=== PATIENT | female | born 1975 | race Caucasian/White ===

== ENCOUNTER 2018-07-06 09:14 | Emergency (ER) | payer OTHER ==
[2018-07-06 09:51] LABS: Absolute Monocytes 0.4 K/uL (0.1-1.3); Absolute Neutrophil 6.2 K/uL (1.8-8.0); Basophils % 0.8 % (0-1.3); Eosinophils % 0.6 % (0-4.4); Hematocrit 46.9 % (36.0-45.0); Lymphocytes % 23.2 % (15.3-44.8); MCH 28.6 pg (27.0-35.0); MCV 86.4 fL (80-100); MPV 8.9 fL (7.6-11.3); Monocytes % 4.5 % (3.3-12.3); RBC Red Blood Cell Count 5.42 M/uL (3.86-4.86)
[2018-07-06] MEDS ORDERED: NA CHLORIDE 0.9% 1,000 ML ONE (10:16)
[2018-07-06 10:23] LABS: Potassium 4.2 mmol/L (3.5-5.1)
--- NOTE | 2018-07-06 11:12 | RAD REPORT ---
EXAM DESCRIPTION: US - Transvaginal OB - 07/06/2018 11:03 am CLINICAL HISTORY: , bleeding COMPARISON: None. FINDINGS: A single intrauterine gestation is identified. Heart rate is 179 BPM. In the lower uterine segment near a closed internal os there is a 2 centimeter heterogeneous focus that could be small am ount of hemorrhagic material. This is not likely clinically significant at this small size but can be monitored. [place]-rump length measurement corresponds to a 10 week 4 day age. Calculated MICHAEL is 01/28/2019. Neither ovary was identifiable. No adnexal mass seen. No blood or free fluid in the cul-de-sac. IMPRESSION: Single 10 week 4 day IUP with a calculated MICHAEL of 01/28/2019. Heart rate was 179 BPM. There is a 2 centimeter heterogeneous focus in the lower uterine segment near a closed internal os. T his is suspected to be hemorrhagic material. Long-term significance is doubtful but this can be monit ored if symptoms worsen.
[2018-07-06 12:08] LABS: Urine Bilirubin NEGATIVE (NEG); Urine Glucose NEGATIVE (NEG); Urine Protein 2+ (NEG); Urine Specific Gravity >=1.030 (1.005-1.030); Urine Urobilinogen 0.2 mg/dL (0.2-1.0); Urine pH 5.5 (5.0-7.0)
[2018-07-06 12:17] LABS: Urine Color RED
[2018-07-06 12:18] LABS: Urine Appearance TURBID; Urine Blood 4+ (NEG); Urine Microscopic Reflex ORDER UMIC
[2018-07-06 12:20] LABS: Urine Bacteria <20 /HPF (<20); Urine Culture Reflex Order REFLEXED; Urine RBC >50 /HPF (NONE SEEN)
--- NOTE | 2018-07-06 12:29 | ER ---
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 Transition of care: patient was not received from another setting of care. Onset of symptoms was July 06, 2018. Risk Assessment: Do you want to hurt yourself or someone else? Patient reports no desire to harm self or others. Initial Sepsis Screen: Does the patient meet any 2 criteria? No. Patient's initial sepsis screen is negative. Does the patient have a suspected source of infection? No. Patient's initial sepsis screen is negative. Care prior to arrival: None. 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 - Ebola Screening: : Patient negative for fever greater than or equal to 101.5 degrees Fahrenheit, and additional compatible Ebola Virus Disease symptoms Patient denies exposure to infectious person Patient denies travel to an Ebola-affected area in the 21 days before illness onset No symptoms or risks identified at this time. - Family history:: not pertinent. - Social history:: Smoking status: Patient/guardian denies using tobacco. - Hospitalizations: : No recent hospitalization is reported. Screenin:28 Abuse screen: Denies threats or abuse. Denies injuries from another. Nutritional sv screening: No deficits noted. Tuberculosis screening: No symptoms or risk factors identified. Fall Risk None identified. Assessment: 09:25 General: Appears uncomfortable, Behavior is cooperative, crying. Pain: Denies pain. sv Neuro: Level of Consciousness is awake, alert, obeys commands, Oriented to person, place, time, situation, Moves all extremities. Full function Gait is steady. Respiratory: Respiratory effort is even, unlabored, Respiratory pattern is regular, symmetrical. : Reports vaginal bleeding that is bright red, moderate flow, since today. Derm: Skin is pink, warm \T\ dry. Vital Signs: 09:22 BP 166 / 112; Pulse 128; Resp 20 S; Temp 98.1(TE); Pulse Ox 97% ; aa5 10:14 BP 120 / 107; Pulse 95; Resp 18; Pulse Ox 100% ; sv 12:14 BP 109 / 64; Pulse 89; Resp 17; Pulse Ox 96% on R/A; dh3 12:53 BP 107 / 64; Pulse 90; Resp 18; Pulse Ox 95% on R/A; tw2 09:22 Pt crying uncontrollably during VS aa5 ED Course: 09:15 Patient arrived in ED. mr 09:15 out of town, doctor is Private Physician. mr 09:17 Avril Mason RN is Primary Nurse. sv 09:18 Brodie Gan MD is Attending Physician. rn 09:25 Initial lab(s) drawn, by me, sent to lab. Inserted saline lock: 20 gauge in right sv antecubital area, using aseptic technique. Blood collected. Flushed right antecubital with 5 ml normal saline. 09:25 Patient has correct armband on for positive identification. Placed in gown. Bed in low sv position. Call light in reach. Adult w/ patient. Pulse ox on. NIBP on. Door closed. Pillow given. Head of bed elevated. 09:27 Triage completed. iw 09:28 Arm band placed on right wrist. sv 09:41 Radiology exam delayed due to test not completed at this time. aa4 11:03 US Transvaginal Ob In Process Unspecified. EDMS 13:04 No provider procedures requiring assistance completed. IV discontinued, intact, sv bleeding controlled, No redness/swelling at site. Pressure dressing applied. Administered Medications: 10:14 Drug: NS 0.9% 1000 ml Route: IV; Rate: 1000 ml; Site: right antecubital; sv Outcome: 12:28 Discharge ordered by . rn 13:04 Patient left the ED. sv 13:04 Discharged to home via wheelchair, with family. sv 13:04 Condition: stable 13:04 Discharge instructions given to patient, Instructed on discharge instructions, follow up and referral plans. medication usage, Demonstrated understanding of instructions, follow-up care, medications, Prescriptions given X 1. Signatures: Dispatcher [employer] EDAvril Silva RN RN De La PazMary Irene RN ALLIE Nasra Rivera aa4 Brodie Gan MD MD rn Calderon, Audri, RN RN aa5 Ana Lilia Badillo RN RN 2 Lis Orellana 3 Corrections: (The following items were deleted from the chart) 12:22 11:14 BP 109 / 64; Pulse 89bpm; Resp 17bpm; Pulse Ox 96% RA; dh3 dh3 13:13 13:06 Patient left the ED. [facility]
--- NOTE | 2018-07-06 12:29 | EDPHYS ---
Physician Documentation [facility] Name: Graciela Grewal Age: 42 yrs Sex: Female : 1975 Arrival Date: 07/06/2018 Time: 09:15 Bed 7 Private MD: out of town, doctor ED Physician Brodie Gan HPI: 07/06 09:35 This 42 yrs old Female presents to ER via Ambulatory with complaints of rn Vaginal Bleeding, + Preg <12wks. 09:35 The patient presents to the emergency department with vaginal bleeding, that is rn moderate. The estimated gestational age is 10 weeks. course: care: private OB physician, Leakage of Fluid: none appreciated, Ultrasound: the patient had an ultrasound, which was normal. Previous pregnancies: in previous pregnancies patient has had. The patient has experienced similar episodes in the past. 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 Has never carried to term.. 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 - Ebola Screening: : Patient negative for fever greater than or equal to 101.5 degrees Fahrenheit, and additional compatible Ebola Virus Disease symptoms Patient denies exposure to infectious person Patient denies travel to an Ebola-affected area in the 21 days before illness onset No symptoms or risks identified at this time. - Family history:: not pertinent. - Social history:: Smoking status: Patient/guardian denies using tobacco. - Hospitalizations: : No recent hospitalization is reported. ROS: 09:35 Constitutional: Negative for fever, chills, and weight loss, Eyes: Negative for injury, rn pain, redness, and discharge, Neck: Negative for injury, pain, and swelling, Cardiovascular: Negative for chest pain, palpitations, and edema, Respiratory: Negative for shortness of breath, cough, wheezing, and pleuritic chest pain, Abdomen/GI: Negative for abdominal pain, nausea, vomiting, diarrhea, and constipation, : + vaginal bleeding MS/Extremity: Negative for injury and deformity, Skin: Negative for injury, rash, and discoloration, Neuro: Negative for headache, weakness, numbness, tingling, and seizure. Exam: 09:35 Constitutional: This is a well developed, well nourished patient who is awake, alert, rn crying Eyes: Pupils equal round and reactive to light, extra-ocular motions intact. Lids and lashes normal. Conjunctiva and sclera are non-icteric and not injected. Abdomen/GI: soft, non-tender, blood stain inner thighs Skin: Warm, dry with normal turgor. Normal color with no rashes, no lesions, and no evidence of cellulitis. MS/ Extremity: Pulses equal, no cyanosis. Neurovascular intact. Full, normal range of motion. Equal circumference. Neuro: Awake and alert, GCS 15 Vital Signs: 09:22 BP 166 / 112; Pulse 128; Resp 20 S; Temp 98.1(TE); Pulse Ox 97% ; aa5 10:14 BP 120 / 107; Pulse 95; Resp 18; Pulse Ox 100% ; sv 12:14 BP 109 / 64; Pulse 89; Resp 17; Pulse Ox 96% on R/A; dh3 12:53 BP 107 / 64; Pulse 90; Resp 18; Pulse Ox 95% on R/A; tw2 09:22 Pt crying uncontrollably during VS aa5 MDM: 09:18 Patient medically screened. rn 12:27 Differential diagnosis: ectopic . Data reviewed: vital signs, nurses notes, burner shaft test result(s), radiologic studies, ultrasound, and as a result, I will discharge patient. Counseling: I had a detailed discussion with the patient and/or guardian regarding: the historical points, exam findings, and any diagnostic results supporting the discharge/admit diagnosis, lab results, radiology results, the need for outpatient follow up, to return to the emergency department if symptoms worsen or persist or if there are any questions or concerns that arise at home. Special discussion: I discussed with the patient/guardian in detail that at this point there is no indication for admission to the hospital. It is understood, however, that if the symptoms persist or worsen the patient needs to return immediately for re-evaluation. Based on the history and exam findings, there is no indication for further emergent testing or inpatient evaluation. I discussed with the patient/guardian the need to see the OB Gyne specialist for further evaluation of the symptoms. 07/06 09:34 Order name: Quantitative Hcg; Complete Time: 11:06 rn 07/06 09:34 Order name: Abo/rh Typing; Complete Time: 10:18 rn 07/06 09:34 Order name: Basic Metabolic Panel; Complete Time: 11:06 rn 07/06 09:34 Order name: CBC with Diff; Complete Time: 10:05 rn 07/06 11:26 Order name: Urinalysis; Complete Time: 12:27 iw 07/06 09:34 Order name: IV Saline Lock; Complete Time: 09:42 rn 07/06 09:34 Order name: Labs collected and sent; Complete Time: 09:42 rn 07/06 09:34 Order name: US Transvaginal Ob; Complete Time: 11:16 rn 07/06 12:20 Order name: Urine Microscopic Only; Complete Time: 12:27 EDOH 07/06 12:21 Order name: Urine Culture EDOH 07/06 12:53 Order name: ABO/RH no charge EDOH 07/06 09:34 Order name: NPO; Complete Time: 09:42 rn 07/06 09:34 Order name: Urine Dipstick-Ancillary (obtain specimen); Complete Time: 12:12 rn Administered Medications: 10:14 Drug: NS 0.9% 1000 ml Route: IV; Rate: 1000 ml; Site: right antecubital; sv Disposition: 07/06/18 12:28 Discharged to Home. Impression: Threatened . - Condition is Stable. - Discharge Instructions: Threatened Miscarriage, Vaginal Bleeding During , First Trimester, Pelvic Rest. - Prescriptions for Macrobid 100 mg Oral Capsule - take 1 capsule by ORAL route every 12 hours for 7 days; 14 capsule. - Medication Reconciliation Form, Thank You Letter, Antibiotic Education, Prescription Opioid Use, Work release form, Family Work Release form. - Follow up: Private Physician; When: 48 Hours; Reason: Recheck today's complaints, Repeat Beta-HCG (48 Hours), Re-evaluation by your physician. - Problem is new. - Symptoms have improved. Signatures: Dispatcher [employer] EDOH Avril Mason RN RN sv Tigist Buitrago RN RN iw Brodie Gan MD MD geotechnical intern: (The following items were deleted from the chart) 12:20 10:06 UA MICROSCOPIC+U.LAB.BRZ ordered. [facility] EDOH 13:06 12:28 07/06/2018 12:28 Discharged to Home. Impression: Threatened . Condition sv is Stable. Forms are Medication Reconciliation Form, Thank You Letter, Antibiotic Education, Prescription Opioid Use. Follow up: Private Physician; When: 48 Hours; Reason: Recheck today's complaints, Repeat Beta-HCG (48 Hours), Re-evaluation by your physician. Problem is new. Symptoms have improved. rn
== END 2018-07-06 13:06 | disposition home or self-care (01) ==
LOC: ER 09:14
DX: O20.0 Threatened abortion (principal); O16.1 Unspecified maternal hypertension, first trimester; Z3A.10 10 weeks gestation of pregnancy
CPT/HCPCS: 36415; 76817; 80048; 81003; 81015; 84702; 85025; 86900; 86901; 87086; 87088; 99284; J7030

== ENCOUNTER 2018-08-14 03:58 | Emergency (ER) | payer OTHER ==
[2018-08-14] MEDS ORDERED: MORPHINE 4 MG/ML SYR ONE ×3 (04:21→06:59)
[2018-08-14] MEDS ORDERED: ONDANSETRON 4 MG/2 ML VIAL ONE ×2 (04:21→05:36)
[2018-08-14] MEDS ORDERED: NA CHLORIDE 0.9% 1,000 ML ONE (04:21)
[2018-08-14 04:34] LABS: MCH 29.5 pg (27.0-35.0)
[2018-08-14 04:40] LABS: Absolute Lymphocytes (CBC) 2.2 K/uL (0.7-4.9); Absolute Monocytes 0.5 K/uL (0.1-1.3); Absolute Neutrophil 5.6 K/uL (1.8-8.0); Basophils % 0.5 % (0-1.3); Hematocrit 43.4 % (36.0-45.0); Lymphocytes % 26.1 % (15.3-44.8); MCV 87.2 fL (80-100); MPV 8.8 fL (7.6-11.3); Monocytes % 6.2 % (3.3-12.3); RBC Red Blood Cell Count 4.97 M/uL (3.86-4.86)
[2018-08-14 05:13] LABS: Potassium 4.2 mmol/L (3.5-5.1)
[2018-08-14] MEDS ORDERED: LORazepam 2 MG/ML VIAL ONE (05:35)
[2018-08-14] MEDS ORDERED: METHYLERGONOVINE 0.2MG/ML AMP IM ONE ×2 (05:37→05:43)
--- NOTE | 2018-08-14 06:27 | EDPHYS ---
Physician Documentation [facility] Name: Graciela Grewal Age: 43 yrs Sex: Female : 1975 Arrival Date: 08/14/2018 Time: 03:58 Bed 7 Private MD: ED Physician Brenden Oscar HPI: 08/14 04:12 This 43 yrs old Female presents to ER via Wheelchair with complaints of ajit Vaginal Bleeding - 15 Wks Preg. 04:12 The patient presents with vaginal bleeding that is moderate. Onset: The ajit symptoms/episode began/occurred just prior to arrival. Modifying factors: The symptoms are alleviated by nothing, the symptoms are aggravated by nothing. Associated signs and symptoms: The patient has no apparent associated signs or symptoms. Severity of symptoms: At their worst the symptoms were moderate, in the emergency department the symptoms are unchanged. 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 - Social history:: Smoking status: Patient/guardian denies using tobacco, Patient/guardian denies using alcohol, street drugs. - Ebola Screening: : No symptoms or risks identified at this time. - Family history:: not pertinent. ROS: 04:12 Constitutional: Negative for fever, chills, and weight loss, Eyes: Negative for injury, ajit pain, redness, and discharge, ENT: Negative for injury, pain, and discharge, Neck: Negative for injury, pain, and swelling, Cardiovascular: Negative for chest pain, palpitations, and edema, Respiratory: Negative for shortness of breath, cough, wheezing, and pleuritic chest pain, Back: Negative for injury and pain, MS/Extremity: Negative for injury and deformity, Skin: Negative for injury, rash, and discoloration, Neuro: Negative for headache, weakness, numbness, tingling, and seizure, Psych: Negative for depression, anxiety, suicide ideation, homicidal ideation, and hallucinations, Allergy/Immunology: Negative for hives, rash, and allergies, Endocrine: Negative for neck swelling, polydipsia, polyuria, polyphagia, and marked weight changes, Hematologic/Lymphatic: Negative for swollen nodes, abnormal bleeding, and unusual bruising. 04:12 Abdomen/GI: Positive for abdominal pain, abdominal cramps, of the suprapubic area, right lower quadrant and left lower quadrant. 04:12 : Positive for vaginal bleeding. Exam: 04:12 Constitutional: This is a well developed, well nourished patient who is awake, alert, ajit and in no acute distress. Head/Face: Normocephalic, atraumatic. Eyes: Pupils equal round and reactive to light, extra-ocular motions intact. Lids and lashes normal. Conjunctiva and sclera are non-icteric and not injected. Cornea within normal limits. Periorbital areas with no swelling, redness, or edema. ENT: Nares patent. No nasal discharge, no septal abnormalities noted. Tympanic membranes are normal and external auditory canals are clear. Oropharynx with no redness, swelling, or masses, exudates, or evidence of obstruction, uvula midline. Mucous membranes moist. Neck: Trachea midline, no thyromegaly or masses palpated, and no cervical lymphadenopathy. Supple, full range of motion without nuchal rigidity, or vertebral point tenderness. No Meningismus. Chest/axilla: Normal chest wall appearance and motion. Nontender with no deformity. No lesions are appreciated. Cardiovascular: Regular rate and rhythm with a normal S1 and S2. No gallops, murmurs, or rubs. Normal PMI, no JVD. No pulse deficits. Respiratory: Lungs have equal breath sounds bilaterally, clear to auscultation and percussion. No rales, rhonchi or wheezes noted. No increased work of breathing, no retractions or nasal flaring. Back: No spinal tenderness. No costovertebral tenderness. Full range of motion. Female : Normal external genitalia. Skin: Warm, dry with normal turgor. Normal color with no rashes, no lesions, and no evidence of cellulitis. MS/ Extremity: Pulses equal, no cyanosis. Neurovascular intact. Full, normal range of motion. Neuro: Awake and alert, GCS 15, oriented to person, place, time, and situation. Cranial nerves II-XII grossly intact. Motor strength 5/5 in all extremities. Sensory grossly intact. Cerebellar exam normal. Normal gait. Psych: Awake, alert, with orientation to person, place and time. Behavior, mood, and affect are within normal limits. 04:12 Abdomen/GI: Inspection: distension, gravid appearance, Bowel sounds: normal, Palpation: moderate abdominal tenderness, in the suprapubic area, right lower quadrant and left lower quadrant, Liver: no appreciated palpable abnormalities, Hernia: not appreciated. 06:21 : CVA tenderness, is absent, Pelvic Exam: External exam: is normal, Speculum exam: [facility] mild bleeding, no cervicitis, os that is closed, bimanual exam reveals no cervical motion tenderness, os that is closed, an enlarged uterus, uterine tenderness, the nurse was present for the exam. Vital Signs: 04:08 BP 165 / 85; Pulse 119; Resp 18 S; Temp 98.1(O); Pulse Ox 96% on R/A; Weight 134.72 kg bb (R); Height 5 ft. 9 in. (175.26 cm) (R); Pain 10/10; 05:16 BP 185 / 78; Pulse 107; Resp 18; Pulse Ox 98% ; ea 05:52 BP 137 / 76; Pulse 69; Resp 18; Pulse Ox 97% on R/A; ea 06:50 BP 128 / 70; Pulse 78; Resp 18; Temp 98.5(O); Pulse Ox 98% ; Pain 5/10; ea 04:08 Body Mass Index 43.86 (134.72 kg, 175.26 cm) bb MDM: 04:07 Patient medically screened. [facility] 04:16 Data reviewed: vital signs, nurses notes, lab test result(s), radiologic studies, [facility] ultrasound. 08/14 04:12 Order name: Quantitative Hcg; Complete Time: 05:17 [facility] 08/14 04:12 Order name: Abo/rh Typing; Complete Time: 05: [facility] 08/14 04:12 Order name: Basic Metabolic Panel; Complete Time: 05: [facility] 08/14 04:12 Order name: CBC with Diff; Complete Time: 05:17 [facility] 08/14 04:12 Order name: US OB Limited [facility] 08/14 04:12 Order name: IV Saline Lock; Complete Time: 04: [facility] 08/14 04:12 Order name: Labs collected and sent; Complete Time: 04:20 [facility] 08/14 04:12 Order name: NPO; Complete Time: : [facility] 08/14 05:17 Order name: Pelvic Exam Setup; Complete Time: : [facility] Administered Medications: 04:20 Drug: NS 0.9% 1000 ml Route: IV; Rate: 1 bolus; Site: right antecubital; jd3 06:47 Follow up: Response: No adverse reaction; IV Status: Completed infusion; IV Intake: ea 1000ml 04:20 Drug: morphine 2 mg Route: IVP; Site: right antecubital; jd3 05:26 Follow up: Response: No adverse reaction; Pain is unchanged, physician notified ea 04:20 Drug: Zofran 4 mg Route: IVP; Site: right antecubital; jd3 05:25 Follow up: Response: No adverse reaction; Pain is unchanged, physician notified ea 05:25 Follow up: Response: No adverse reaction; Marked relief of symptoms ea 04:21 Drug: morphine 2 mg Route: IVP; Site: right antecubital; jd3 05:26 Follow up: Response: No adverse reaction; Pain is unchanged, physician notified ea 05:22 Drug: morphine 4 mg Route: IVP; Site: right antecubital; ea 06:43 Follow up: Response: No adverse reaction; Pain is decreased ea 05:47 Drug: Zofran 4 mg Route: IVP; Site: right antecubital; ea 06:44 Follow up: Response: No adverse reaction ea 05:48 Drug: METHERgine 0.2 mg Route: IM; Site: left deltoid; ea 06:43 Follow up: Response: No adverse reaction ea 05:48 Drug: Ativan 1 mg Route: IVP; Site: right antecubital; ea 06:43 Follow up: Response: No adverse reaction ea 07:01 Drug: morphine 4 mg Route: IVP; Site: right antecubital; ea 07:01 Follow up: Response: Medication administered at discharge. ea Disposition: 08/14/18 06:26 Discharged to Home. Impression: Obesity, unspecified, Spontaneous . - Condition is Stable. - Discharge Instructions: Type 2 Diabetes Mellitus, Diagnosis, Adult, Obesity, Adult, Miscarriage, Pelvic Rest, Type 2 Diabetes Mellitus, Diagnosis, Adult, [id number], Miscarriage, [id number]. - Prescriptions for Vitamin 27- 0.8 mg Oral Tablet - take 1 tablet by ORAL route once daily; 30 tablet. Methergine 0.2 mg Oral tablet - take 1 tablet by ORAL route every 6 hours; 5 tablet. Tylenol- Codeine #3 300-30 mg Oral Tablet - take 2 tablets by ORAL route every 6 hours As needed; 20 tablet. - Medication Reconciliation Form, Thank You Letter, Antibiotic Education, Prescription Opioid Use form. - Follow up: Private Physician; When: 2 - 3 days; Reason: Recheck today's complaints, Continuance of care, Re-evaluation by your physician. Follow up: Radha Gonzalez MD; When: 1 - 2 days; Reason: Recheck today's complaints, Continuance of care, Re-evaluation by your physician. - Problem is new. - Symptoms have improved. Signatures: Dispatcher [employer] EDMS Brenden Oscar MD MD cha Ballard, Brenda, RN RN bb Antunez, Elena, RN RN ea Davies, Jonathon, RN RN jd3 Corrections: (The following items were deleted from the chart) 07:11 06:26 08/14/2018 06:26 Discharged to Home. Impression: Obesity, unspecified; ea Spontaneous . Condition is Stable. Discharge Instructions: Obesity, Adult, Pelvic Rest, Type 2 Diabetes Mellitus, Diagnosis, Adult, Type 2 Diabetes Mellitus, Diagnosis, Adult, [id number], Miscarriage, Miscarriage, Leml-zy-[id number]. Prescriptions for Vitamin 27-0.8 mg Oral Tablet - take 1 tablet by ORAL route once daily; 30 tablet, Methergine 0.2 mg Oral tablet - take 1 tablet by ORAL route every 6 hours; 5 tablet, Tylenol-Codeine #3 300-30 mg Oral Tablet - take 2 tablets by ORAL route every 6 hours As needed; 20 tablet. and Forms are Medication Reconciliation Form, Thank You Letter, Antibiotic Education, Prescription Opioid Use. Follow up: Private Physician; When: 2 - 3 days; Reason: Recheck today's complaints, Continuance of care, Re-evaluation by your physician. Follow up: Radha Gonzalez; When: 1 - 2 days; Reason: Recheck today's complaints, Continuance of care, Re-evaluation by your physician. Problem is new. Symptoms have improved. ajit
--- NOTE | 2018-08-14 06:27 | ER ---
Nurse's Notes [facility] Name: Graciela Grewal Age: 43 yrs Sex: Female : 1975 Arrival Date: 08/14/2018 Time: 03:58 Bed 7 Private MD: Diagnosis: Obesity, unspecified;Spontaneous Presentation: 08/14 04:05 Presenting complaint: Patient states: she is 15 weeks and started vaginal bb bleeding with clots and abdominal cramping approx 15 mins ago pt is G4, P0. Transition of care: patient was not received from another setting of care. Onset of symptoms was August 14, 2018. Risk Assessment: Do you want to hurt yourself or someone else? Patient reports no desire to harm self or others. Initial Sepsis Screen: Does the patient meet any 2 criteria? No. Patient's initial sepsis screen is negative. Does the patient have a suspected source of infection? No. Patient's initial sepsis screen is negative. Care prior to arrival: None. 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 - Social history:: Smoking status: Patient/guardian denies using tobacco, Patient/guardian denies using alcohol, street drugs. - Ebola Screening: : No symptoms or risks identified at this time. - Family history:: not pertinent. Screenin:05 Abuse screen: Denies threats or abuse. Nutritional screening: No deficits noted. ea Tuberculosis screening: No symptoms or risk factors identified. Fall Risk None identified. Assessment: 04:15 General: Appears uncomfortable, Behavior is cooperative. Pain: Complains of pain in ea left lower quadrant and right lower quadrant and suprapubic area Pain currently is 10 out of 10 on a pain scale. Quality of pain is described as crampy. Neuro: Level of Consciousness is awake, alert, obeys commands, Oriented to person, place, time. Cardiovascular: Patient's skin is warm and dry. Respiratory: Airway is patent Respiratory effort is even, unlabored, Respiratory pattern is regular, symmetrical. GI: Reports lower abdominal pain. : Reports vaginal bleeding that is. Derm: Skin is pink, warm \T\ dry. 04:50 Reassessment: Taken to restroom via wheelchair, pt reported she passed fetus, product ea of conception collected and sent to lab, provider notified. 05:45 Reassessment: Patient and/or family updated on plan of care and expected duration. Pain ea level reassessed. Ultrasound at bedside. 06:50 Reassessment: Patient and/or family updated on plan of care and expected duration. Pain ea level reassessed. Discharge instructions given to patient, verbalized the understanding of instruction. Vital Signs: 04:08 BP 165 / 85; Pulse 119; Resp 18 S; Temp 98.1(O); Pulse Ox 96% on R/A; Weight 134.72 kg bb (R); Height 5 ft. 9 in. (175.26 cm) (R); Pain 10/10; 05:16 BP 185 / 78; Pulse 107; Resp 18; Pulse Ox 98% ; ea 05:52 BP 137 / 76; Pulse 69; Resp 18; Pulse Ox 97% on R/A; ea 06:50 BP 128 / 70; Pulse 78; Resp 18; Temp 98.5(O); Pulse Ox 98% ; Pain 5/10; ea 04:08 Body Mass Index 43.86 (134.72 kg, 175.26 cm) bb ED Course: 03:58 Patient arrived in ED. ds1 04:04 Darcie Lynch, RN is Primary Nurse. ea 04:07 Triage completed. bb 04:07 Brenden Oscar MD is Attending Physician. ajit 04:08 Arm band placed on Patient placed in an exam room, on a stretcher, on pulse oximetry. bb 04:20 Quantitative Hcg Sent. ds4 04:20 Abo/rh Typing Sent. ds4 04:20 Basic Metabolic Panel Sent. ds4 04:20 CBC with Diff Sent. ds4 04:29 Patient has correct armband on for positive identification. Bed in low position. Call ea light in reach. Side rails up X2. 05:28 Ultrasound completed. Patient tolerated well. aa4 05:30 OB Limited In Process Unspecified. EDMS 06:15 Assist provider with pelvic exam: Set up pelvic tray. Performed by Brenden Oscar MD bb POC passed, sent to pathology, Patient tolerated well. 06:26 Radha Gonzalez MD is Referral Physician. ajit 07:01 IV discontinued, intact, bleeding controlled, No redness/swelling at site. Pressure ea dressing applied. Administered Medications: 04:20 Drug: NS 0.9% 1000 ml Route: IV; Rate: 1 bolus; Site: right antecubital; jd3 06:47 Follow up: Response: No adverse reaction; IV Status: Completed infusion; IV Intake: ea 1000ml 04:20 Drug: morphine 2 mg Route: IVP; Site: right antecubital; jd3 05:26 Follow up: Response: No adverse reaction; Pain is unchanged, physician notified ea 04:20 Drug: Zofran 4 mg Route: IVP; Site: right antecubital; jd3 05:25 Follow up: Response: No adverse reaction; Pain is unchanged, physician notified ea 05:25 Follow up: Response: No adverse reaction; Marked relief of symptoms ea 04:21 Drug: morphine 2 mg Route: IVP; Site: right antecubital; jd3 05:26 Follow up: Response: No adverse reaction; Pain is unchanged, physician notified ea 05:22 Drug: morphine 4 mg Route: IVP; Site: right antecubital; ea 06:43 Follow up: Response: No adverse reaction; Pain is decreased ea 05:47 Drug: Zofran 4 mg Route: IVP; Site: right antecubital; ea 06:44 Follow up: Response: No adverse reaction ea 05:48 Drug: METHERgine 0.2 mg Route: IM; Site: left deltoid; ea 06:43 Follow up: Response: No adverse reaction ea 05:48 Drug: Ativan 1 mg Route: IVP; Site: right antecubital; ea 06:43 Follow up: Response: No adverse reaction ea 07:01 Drug: morphine 4 mg Route: IVP; Site: right antecubital; ea 07:01 Follow up: Response: Medication administered at discharge. ea Intake: 06:47 IV: 1000ml; Total: 1000ml. ea Outcome: 06:26 Discharge ordered by . ajit 06:46 Discharge instructions given to patient, Instructed on discharge instructions, follow ea up and referral plans. medication usage, Demonstrated understanding of instructions, follow-up care, medications, Prescriptions given X 3. 07:01 Condition: improved ea 07:10 Discharged to home via wheelchair, with family. ea 07:11 Patient left the ED. ea Signatures: Dispatcher [employer] EDBrenden Cassidy MD MD cha Sanford, Demi ds1 Tari Coronado, RN RN Nasra Antoine aa4 Juan Ballesteros ds4 Darcie Lynch RN RN ea Davies, Jonathon, RN RN jd3
--- NOTE | 2018-08-14 08:35 | RAD REPORT ---
EXAM DESCRIPTION: US - OB Limited - 08/14/2018 5:30 am CLINICAL HISTORY: with abdominal pain COMPARISON: 07/06/2018 FINDINGS: The uterus measures 18 x 11 x 12 centimeters. The endometrial stripe measures 4 centimeter s. A gestational sac is not seen. Abnormal vascularity is not visualized within the endometrium. No significant free fluid is noted. IMPRESSION: The patient has had an . No direct signs of retained products of conception are seen. However a thickened endometrium can indicate an incomplete . If clinically indicated fu rther evaluation with endovaginal sonogram could be obtained to better assess the endometrium
== END 2018-08-14 07:11 | disposition home or self-care (01) ==
LOC: ER 03:58
DX: O03.9 Complete or unspecified spontaneous abortion without complication (principal); E66.9 Obesity, unspecified
CPT/HCPCS: 36415; 76815; 80048; 84702; 85025; 86900; 86901; 88300; 96361; 96372; 96374; 96375; 99284; J2210; J2405; J7030

== ENCOUNTER 2021-07-16 18:31 | Emergency (ER) | payer SELFPAY ==
[2021-07-16 20:43] LABS: Basophils % 0.4 % (0-1.3); Hematocrit 42.8 % (36.0-45.0); RBC Red Blood Cell Count 5.38 M/uL (3.86-4.86)
[2021-07-16 20:55] LABS: Potassium 3.8 mmol/L (3.5-5.1)
[2021-07-16] MEDS ORDERED: CASIRIVIMAB/IMDEVIMAB 10 ML VIAL ONE (21:00)
[2021-07-16] MEDS ORDERED: NA CHLORIDE 0.9% 250 ML ONE (21:00)
[2021-07-16] MEDS ORDERED: NA CHLORIDE 0.9% 50 ML ONE (21:00)
[2021-07-16 21:06] LABS: Blood Morphology Comment NOT SEEN (NOT SEEN); Platelet Estimate ADEQ; White Blood Cell Scan OK (OK)
--- NOTE | 2021-07-16 21:39 | RAD REPORT ---
EXAM DESCRIPTION: RAD - Chest Single View - 07/16/2021 9:28 pm CLINICAL HISTORY: COUGH COMPARISON: Chest Pa And Lat (2 Views) dated 12/18/2016; CHEST PA AND LAT 2 VIEW dated 11/08/2011; [facility] ST PA AND LAT 2 VIEW dated 12/02/2004 FINDINGS: Lines: None. Lungs: Increased lung markings noted bilaterally. Pleural: No significant pleural effusions or pneumothorax. Cardiac: The heart size is within normal limits. Bones: No acute fractures. Other: IMPRESSION: Increased lung markings bilaterally which could represent vascular congestion versus mil d multifocal pneumonia.
--- NOTE | 2021-07-16 22:44 | ER ---
Nurse's Notes [facility] Name: Graciela Lorenzo Age: 45 yrs Sex: Female : 1975 Arrival Date: 07/16/2021 Time: 18:35 Bed DX2 Private MD: Diagnosis: Coronavirus infection, unspecified Presentation: 07/16 19:58 Chief complaint: Patient states: PT was tested and was positive for Covid on Fri. Pt wg c/o headache, cough, N/V/D, SOB, CP with cough. Fevers that come and go with Tylenol. Pt states she took 500mg of Tylenol at 1800. Coronavirus screen: Client reports previous positive COVID test result. Date of collection: July 11, 2021. Coronavirus screen: Vaccine status: Patient reports being unvaccinated. Ebola Screen: Patient negative for fever greater than or equal to 101.5 degrees Fahrenheit, and additional compatible Ebola Virus Disease symptoms Patient denies exposure to infectious person. Patient denies travel to an Ebola-affected area in the 21 days before illness onset. Initial Sepsis Screen: Does the patient meet any 2 criteria? No. Patient's initial sepsis screen is negative. Does the patient have a suspected source of infection? No. Patient's initial sepsis screen is negative. Risk Assessment: Do you want to hurt yourself or someone else? Patient reports no desire to harm self or others. Onset of symptoms was July 13, 2021. 19:58 Method Of Arrival: Ambulatory 19:58 Acuity: LIN 4 Triage Assessment: 20:02 General: Appears uncomfortable, obese, well groomed, Behavior is calm, cooperative, wg appropriate for age. Pain: Complains of pain in Chest- when coughs. Cardiovascular: No deficits noted. 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 - Social history:: Smoking status: Patient denies any tobacco usage or history of. Patient uses alcohol, only on a social basis. Patient/guardian denies using street drugs, IV drugs. Screenin:04 Abuse screen: Denies threats or abuse. Denies injuries from another. Nutritional bb screening: No deficits noted. Tuberculosis screening: No symptoms or risk factors identified. Fall Risk None identified. Assessment: 21:05 Pain: Pain does not radiate. bb 21:05 Pain: Pain began gradually. bb Vital Signs: 19:58 BP 120 / 90; Pulse 105; Resp 18; Temp 97.9; Pulse Ox 98% on R/A; Weight 139.25 kg; wg Height 5 ft. 9 in. (175.26 cm); Pain 7/10; 19:58 Body Mass Index 45.34 (139.25 kg, 175.26 cm) wg ED Course: 18:35 Patient arrived in ED. mr 20:02 Triage completed. wg 20:02 Arm band placed on right wrist. wg 20:12 Mckayla Campbell FNP-C is PHCP. kb 20:12 Brenden Oscar MD is Attending Physician. kb 20:25 Initial lab(s) drawn, by tx, sent to lab. Inserted saline lock: 20 gauge in right bb forearm, using aseptic technique. Blood collected. 21:04 Tari Coronado, RN is Primary Nurse. bb 21:04 Patient has correct armband on for positive identification. Call light in reach. Adult bb w/ patient. lead level designer on. 21:04 No provider procedures requiring assistance completed. Patient maintains SpO2 bb saturation greater than 95% on room air. 21:07 X-ray(s) taken. dc2 21:07 Chest Single View XRAY Sent. dc2 21:28 Chest Single View XRAY In Process Unspecified. EDMS Administered Medications: 21:37 Drug: REGEN-COV Dose Pack 120 mg/mL-120 mg/mL (EUA) 1 application Route: IV; Rate: bc5 calculated rate; Infused Over: 1 hrs; Site: right forearm; 22:41 Follow up: IV Status: Completed infusion bc5 Outcome: 22:43 Discharge ordered by . kb 07/17 00:29 Patient left the ED. bb Signatures: Dispatcher [employer] EDMS Mckayla Campbell FNP-C FNP-Ckb Rivera, Mary mr Tari Coronado, RN RN bb Brien Arroyo RN Kasia Madrid RN RN bc5 Sanjeev, Olimpia, RN RN dc2
--- NOTE | 2021-07-16 22:44 | EDPHYS ---
Physician Documentation [facility] Name: Graciela Lorenzo Age: 45 yrs Sex: Female : 1975 Arrival Date: 07/16/2021 Time: 18:35 Bed DX2 Private MD: ED Physician Brenden Oscar HPI: 07/16 23:06 This 45 yrs old Female presents to ER via Ambulatory with complaints of kb COVID+, Chest Pain, Cough, Headache. 23:06 The patient or guardian reports cough, difficulty breathing, flu symptoms, low-grade kb fever, myalgias. Onset: The symptoms/episode began/occurred 4 day(s) ago. Severity of symptoms: At their worst the symptoms were moderate, in the emergency department the symptoms are unchanged. Modifying factors: The symptoms are alleviated by nothing, the symptoms are aggravated by nothing. Associated signs and symptoms: Pertinent positives: fever, rhinorrhea, Pertinent negatives: chest pain, diarrhea, ear ache, nausea, sore throat, vomiting. The patient has not experienced similar symptoms in the past. The patient has not recently seen a physician. Pt reports cough, congestion, fever, chills, headache, chest pain with cough that started Friday. Tested positive for covid on Friday but was asymptomatic then. 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 - Social history:: Smoking status: Patient denies any tobacco usage or history of. Patient uses alcohol, only on a social basis. Patient/guardian denies using street drugs, IV drugs. ROS: 22:46 Abdomen/GI: Negative for abdominal pain, nausea, vomiting, diarrhea, and constipation. kb 22:46 Constitutional: Positive for body aches, chills, fatigue, fever, malaise. 22:46 ENT: Positive for sinus congestion. 22:46 Respiratory: Positive for cough, Negative for dyspnea on exertion, hemoptysis, orthopnea, pleurisy, shortness of breath, sputum production, wheezing. 22:46 All other systems are negative. 22:48 Cardiovascular: Positive for chest pain, with cough. kb 22:48 Neuro: Positive for headache. Exam: 22:47 Constitutional: This is a well developed, well nourished patient who is awake, alert, kb and in no acute distress. Head/Face: Normocephalic, atraumatic. ENT: Moist Mucous membranes Cardiovascular: Regular rate and rhythm with a normal S1 and S2. No gallops, murmurs, or rubs. No pulse deficits. Respiratory: Respirations even and unlabored. No increased work of breathing, no retractions or nasal flaring. Skin: Warm, dry with normal turgor. Normal color. MS/ Extremity: Pulses equal, no cyanosis. Neurovascular intact. Full, normal range of motion. Neuro: Awake and alert, GCS 15, oriented to person, place, time, and situation. Moves all extremities. Normal gait. Psych: Awake, alert, with orientation to person, place and time. Behavior, mood, and affect are within normal limits. Vital Signs: 19:58 BP 120 / 90; Pulse 105; Resp 18; Temp 97.9; Pulse Ox 98% on R/A; Weight 139.25 kg; wg Height 5 ft. 9 in. (175.26 cm); Pain 7/10; 19:58 Body Mass Index 45.34 (139.25 kg, 175.26 cm) wg MDM: 20:38 Patient medically screened. kb 22:46 Data reviewed: vital signs, nurses notes. Data interpreted: Pulse oximetry: on room air kb is 98 %. Interpretation: normal. Counseling: I had a detailed discussion with the patient and/or guardian regarding: the historical points, exam findings, and any diagnostic results supporting the discharge/admit diagnosis, lab results, radiology results, the need for outpatient follow up, a family practitioner, to return to the emergency department if symptoms worsen or persist or if there are any questions or concerns that arise at home. 07/16 20:21 Order name: CBC with Diff; Complete Time: 21:08 kb 07/16 20:21 Order name: Basic Metabolic Panel; Complete Time: 20:56 kb 07/16 20:21 Order name: EKG; Complete Time: 20:22 kb 07/16 20:21 Order name: Chest Single View XRAY; Complete Time: 21:43 kb 07/16 20:56 Order name: CBC Smear Scan; Complete Time: 21:08 EDMS 07/16 20:21 Order name: EKG - Nurse/Tech; Complete Time: 20:41 kb 07/16 20:21 Order name: IV Start; Complete Time: 20:41 kb Administered Medications: 21:37 Drug: REGEN-COV Dose Pack 120 mg/mL-120 mg/mL (EUA) 1 application Route: IV; Rate: bc5 calculated rate; Infused Over: 1 hrs; Site: right forearm; 22:41 Follow up: IV Status: Completed infusion bc5 Disposition: 07/17 08:00 Co-signature as Attending Physician, Brenden Oscar MD I agree with the assessment and ajit plan of care. Disposition Summary: 07/16/21 22:43 Discharge Ordered Location: Home kb Condition: Stable kb Diagnosis - Coronavirus infection, unspecified kb Followup: kb - With: Emergency Department - When: As needed - Reason: Worsening of condition Followup: kb - With: Private Physician - When: 2 - 3 days - Reason: Recheck today's complaints, Continuance of care, Re-evaluation by your physician Discharge Instructions: - Discharge Summary Sheet kb - COVID-19 kb - COVID-19 Frequently Asked Questions kb - 10 Things You Can Do to Manage Your COVID-19 Symptoms at Home - [facility] kb Forms: - Medication Reconciliation Form kb - Thank You Letter kb - Antibiotic Education kb - Prescription Opioid Use kb Signatures: Dispatcher [employer] EDMS Mckayla Campbell, PARKING TECHNICIAN-C PARKING TECHNICIAN-Brenden Gallardo MD MD cha Gamba, Liam, RN Kasia Sandhu, RN RN bc5 Corrections: (The following items were deleted from the chart) 07/16 22:47 22:46 Abdomen/GI: Negative for abdominal pain, nausea, vomiting, diarrhea, and kb constipation, kb
[2021-07-17 02:08] VITALS: BP 120/90; TEMP 97.9; O2SAT 98
--- NOTE | 2021-07-17 10:23 | EKG ---
Test Date: 2021-07-16 Test Time: 20:28:35 E Learning Coordinator: TEMO MEASUREMENT RESULTS: Intervals: Rate: 101 CT: 164 QRSD: 76 QT: 342 QTc: 443 [place]: P: 46 CT: 164 QRS: 43 T: 28 INTERPRETIVE STATEMENTS: Sinus tachycardia Cannot rule out Anterior infarct, age undetermined Abnormal ECG No previous ECG available for comparison Electronically Signed On 07-17-21 10:21:51 CDT by [place]
== END 2021-07-17 00:29 | disposition home or self-care (01) ==
LOC: ER 18:31
DX: U07.1 COVID-19 (principal); E11.9 Type 2 diabetes mellitus without complications; I10 Essential (primary) hypertension
CPT/HCPCS: 36415; 71045; 80048; 85025; 93005; 96365; 99285; J7050